=== PATIENT | female | born 1985 | race Two or more races ===

== ENCOUNTER 2022-11-05 18:35 | Emergency (ER) | payer SELFPAY ==
[~2022-11-05] VITALS: Ht 165.1 cm; Wt 62.0 kg
[2022-11-05] MEDS ORDERED: ETOMIDATE (2MG/ML) 20ML VIAL IV ONE (18:45)
[2022-11-05] MEDS ORDERED: ROCURONIUM 10MG/ML 10ML VIAL IV ONE (18:45)
[2022-11-05 18:50] VITALS: BP 68/37
[2022-11-05] MEDS ORDERED: IOHEXOL 350 MG/ML 100ML IJ ONE (18:54)
[2022-11-05] MEDS ORDERED: SODIUM CHLORIDE 0.9% 1,000 ML IV ONE ×3 (19:00→20:15)
[2022-11-05] MEDS ORDERED: NOREPINEPHRINE 8 MG/250ML KIT 250 ML IV SCH (19:15)
[2022-11-05 19:17] LABS: Basophils # (auto) 0.1 10 ^3/uL (0-0.2); Basophils % (auto) 0.3 % (0.0-2.0); Eosinophils # (auto) 0 10 ^3/uL (0-0.8); Eosinophils % (auto) 0.1 % (0.0-7.0); Hematocrit 37.4 % (36.0-46.0); Hemoglobin 12.3 g/dL (12.2-16.2); Lymphocytes # (auto) 3.6 10 ^3/uL (0.4-5.4); Mean Corpuscular Hemoglobin 27.5 pg (28.0-32.0); Mean Corpuscular Volume 83.6 fL (80.0-100.0); Monocytes # (auto) 0.3 10 ^3/uL (0-1.3); Monocytes % (auto) 1.4 % (0.0-12.0); Neutrophils # (auto) 13.8 10 ^3/uL (1.6-8.6); Neutrophils % (auto) 78.2 % (37.0-80.0); Nucleated Red Blood Cells % 0.1 %; Red Blood Cells 4.47 10^6/uL (4.0-5.20); Red Cell Distribution Width 13.3 % (11.8-14.3); White Blood Cell 17.7 10^3/uL (4.4-10.8)
[2022-11-05 19:33] LABS: INR 1.03 (0.9-1.15); Partial Thromboplastin Time 33.9 sec (24.6-33.4)
[2022-11-05] MEDS ORDERED: PIPERACILLIN-TAZOB 3.375GM 100 ML IV ONE (19:45)
[2022-11-05] MEDS ORDERED: VANCOMYCIN PER PHARMACY 0 MG IV SCH (19:45)
[2022-11-05] MEDS ORDERED: VANCOMYCIN 1GM/250ML 250 ML IV ONE (19:45)
[2022-11-05 19:56] LABS: Lactic Acid w/Reflex 6.6 mmol/L (0.4-2.0)
[2022-11-05 20:00] LABS: Albumin 3.4 g/dL (3.4-5.0); Alkaline Phosphatase 58 U/L (45-117); Anion Gap 18 (5-15); Aspartate Aminotransferase 73 U/L (15-37); Bilirubin, Total 0.6 mg/dL (0.2-1.0); Calcium 7.3 mg/dL (8.5-10.1); Carbon Dioxide 13 mmol/L (21-32); Chloride 92 mmol/L (98-107); Magnesium 1.6 mg/dL (1.6-2.6); Potassium 3.1 mmol/L (3.5-5.1); Sodium 123 mmol/L (136-145); Total Protein 6.1 g/dL (6.4-8.2)
[2022-11-05 20:12] LABS: Urine Bacteria FEW /hpf (None Seen); Urine Blood Negative /uL (Negative); Urine Specific Gravity 1.011 (1.001-1.035); Urine WBC 1 /hpf (0 - 5)
[2022-11-05 20:16] LABS: Alanine Aminotransferase 73 U/L (13-56); BUN/Creatinine Ratio 17.3 (10.0-20.0); Blood Urea Nitrogen 13 mg/dL (7-18); GFR African American 113 mL/min; GFR Non-African American 93 mL/min; Glucose 337 mg/dL (74-106)
[2022-11-05 20:26] VITALS: BP 68/37
[2022-11-05 20:36] VITALS: BP 112/83
[2022-11-05 21:22] VITALS: BP 110/81
[2022-11-05 21:48] LABS: Alcohol, Urine < 3.0 mg/dL (0-10); Amphetamine Screen, Urine NEGATIVE (NEGATIVE); Barbiturate Scree,Urine NEGATIVE (NEGATIVE); Benzodiazephine Screen, Urine NEGATIVE (NEGATIVE); Cannabinoid Screen, Urine NEGATIVE (NEGATIVE); Cocaine Screen, Urine NEGATIVE (NEGATIVE); Opiate Scree,Urine NEGATIVE (NEGATIVE); Phencyclidine Screen, Urine NEGATIVE (NEGATIVE)
== END 2022-11-05 22:11 | disposition short-term general hospital (02) ==
LOC: EDBD 18:35 → ER 18:35
DX: R40.4 Transient alteration of awareness (principal); A41.9 Sepsis, unspecified organism; I95.9 Hypotension, unspecified; J96.01 Acute respiratory failure with hypoxia; E87.1 Hypo-osmolality and hyponatremia; E87.6 Hypokalemia; R10.2 Pelvic and perineal pain; E87.8 Other disorders of electrolyte and fluid balance, not elsewhere classified; E83.42 Hypomagnesemia; R77.8 Other specified abnormalities of plasma proteins
CPT/HCPCS: 31500; 36415; 36556; 36600; 70496; 71045; 80053; 80307; 80320; 81001; 82805; 83605; 83735; 83880; 84484; 84702; 85025; 85610; 85730; 87040; 93005; 96361; 96365; 96368; 96375; 99291; J2543; J3370; J7030; Q9967; 87076; 87077; 94002